=== PATIENT | female | born 1990 ===

== ENCOUNTER 2024-07-16 23:17 | Observation (INO) | payer MEDICAID ==
[~2024-07-16] VITALS: Ht 162.6 cm; Wt 89.4 kg
[2024-07-16] MEDS ORDERED: LACTATED RINGER'S 1,000 ML IV SCH (23:45)
[2024-07-16] MEDS ORDERED: LACTATED RINGER'S 1,000 ML IV ONE (23:45)
[2024-07-16] MEDS ORDERED: guaiFENesin-DM 100/10mg/5ml SYR PO ONE (23:45)
[2024-07-17] MEDS: METOCLOPRAMIDE HCL 5MG/ml INJ 2ml VIAL IV ONE (00:38)
[2024-07-17] MEDS: FAMOTIDINE (10MG/ML) 2ML VL IV ONE (00:44)
--- NOTE | 2024-07-17 00:53 | DVH ---
OB ULTRASOUND, LIMITED CLINICAL INDICATION: labor TECHNIQUE: Multiple grayscale ultrasound and M-mode images were obtained of the pelvis for evaluation of intrauterine . COMPARISON: None FINDINGS: A single living fetus is seen in cephalic presentation. Biparietal diameter: 7.16 cm (28 weeks, 5 days) Head Circumference: 27.26 cm (29 weeks, 5 days) Abdomen Circumference: 25.65 cm (29 weeks, 6 days) Femur Length: 5.43 cm (28 weeks, 5 days) Estimated weight: 1383 grams (+/- 107 grams). Placenta: Posterior. Amniotic fluid: Visibly normal. HANS 13.6 cm. Cervix is 4.1 cm and closed. heart rate: 164 beats/min. A complete anatomic survey was not performed on this exam. IMPRESSION: Single living intrauterine with an estimated gestational age of 29 weeks, 2 days, corresp onding to an estimated date of delivery of 09/30/2024.
[2024-07-17] MEDS: BETAMETHASONE ACET (30mg/5ml) 5ml Vial 6mg/ml IM ONE (00:58)
--- NOTE | 2024-07-17 10:15 | DVHDS2 ---
Physician Discharge Progress N Final Diagnosis: N/V, cough, and pelvic pressure Operations or Procedures: Operations or Procedures S: 33yo IUP@29.5wks presents to OB triage with c/o vaginal pressure. Also has N/V and cough for two days. Taking zofran, which made her constipated. Denies UCs/LOF/VB/CONNOLLY/vision changes/RUQ pain. Endorses +FM. Denies UTI s/sx and vaginitis s/sx. No sex in the last [address] Conrad at [facility], last visit was 1 week ago OB Hx: x4 (3 PTD from 33-36wks gestation and 1 FTD), SAB x1 PMH: cHTN (taking labetalol 100mg PO BID) O: VSS NST reactive [place]: no UCs noted SVE: /-3 1L LR IV bolus, reglan IVP, pepcid IVP, Robitussin PO, first dose of betamethasone given A: 33yo IUP@29.5wks N/V Cough pelvic pressure P: D/C home FKC/PTL/PreE precautions reviewed Recommended using support belt and moving in/out of bed or the car with both knees together. return to birthplace in 12 hours for second dose of betamethasone then f/u with primary OB as scheduled Dr. Menendez consulted agrees with POC. Other Interventions Other Interventions [place] [address] Ph: [phone] DIAGNOSTIC IMAGING Diagnostic Imaging Report : [id number] Signed PATIENT: ROCHELLE RODRIGUEZ ACCT: [id number] UNIT: [id number] : 1990 LOC: [facility] ROOM / BED: TRIAGE1 / A AGE / SEX: 33 / F ADM STATUS: ADM IN SERVICE 0001 ORDERING PHYSICIAN: DIAN KU CNM PROCEDURE(s): OBUS - OB ULTRASOUND COMP GTR 14 WKS REASON: labor ORDER NUMBER(s): [id number], ACCESSION NUMBER(s): [id number] OB ULTRASOUND, LIMITED CLINICAL INDICATION: labor TECHNIQUE: Multiple grayscale ultrasound and M-mode images were obtained of the pelvis for evaluation of intrauterine . COMPARISON: None FINDINGS: A single living fetus is seen in cephalic presentation. Biparietal diameter: 7.16 cm (28 weeks, 5 days) Head Circumference: 27.26 cm (29 weeks, 5 days) Abdomen Circumference: 25.65 cm (29 weeks, 6 days) Femur Length: 5.43 cm (28 weeks, 5 days) Estimated weight: 1383 grams (+/- 107 grams). Placenta: Posterior. Amniotic fluid: Visibly normal. HANS 13.6 cm. Cervix is 4.1 cm and closed. heart rate: 164 beats/min. A complete anatomic survey was not performed on this exam. IMPRESSION: Single living intrauterine with an estimated gestational age of 29 weeks, 2 days, corresponding to an estimated date of delivery of 09/30/2024. ATED BY: JESÚS BURGOS MD DICTATED DATE/TIME: 07/17/2449 SIGNED BY: JESÚS BURGOS MD SIGNED DATE/TIME: 07/17/2449 CC: Condition on Discharge: Stable Disposition: Home Discharge Instructions: Diet: Regular Activity: No Restrictions, As Tolerated Medications: see med list Follow Up Care: Specialist: return to birthplace in 12 hours for second dose of betamethasone then f/u with primary OB as scheduled Discharge Statement: "Patient was advised to return to the ER or call 911 if any headaches, dizziness, shortness of breath, chest pain, abdominal pain, bleeding, fevers, or worsening of medical condition. Patient was counseled about treatment plan, medications, possible side effects, patientverbalized understanding. All questions were answered to the best of my ability. This discharge took greater then 30 minutes in planning, reviewing documentation, counseling the patient, and discussing with other team members." Visit Coding OBGYN Date of Service: Jul 17, 2024 Billing Provider: DIAN KU CNM APPLICATION MANAGER Common Visit Codes: 43464-IQWPRMY OBS CARE (HIGH) APPLICATION MANAGER Procedure Codes: 25723-83- NON-STRESS TEST DIAN KU CNM Jul 17, 2024 10:15
[2024-07-17] MEDS ORDERED: LABE100T7 PO (13:32)
== END 2024-07-17 01:50 | disposition home or self-care (01) ==
LOC: LDRP 23:17
PROVIDERS: ADMIT Obstetrics & Gynecology; ATTEND Obstetrics & Gynecology
DX: O62.9 Abnormality of forces of labor, unspecified (principal); O21.9 Vomiting of pregnancy, unspecified; O26.893 Other specified pregnancy related conditions, third trimester; N89.8 Other specified noninflammatory disorders of vagina; R10.84 Generalized abdominal pain; K59.00 Constipation, unspecified; R05.9 Cough, unspecified; Z3A.29 29 weeks gestation of pregnancy; Z79.899 Other long term (current) drug therapy
CPT/HCPCS: 59025; 76805; 76817; 81002; 94760; 96361; 96372; 96374; 96375; G0378; 96360

== ENCOUNTER 2024-07-17 13:00 | Observation (INO) | payer MEDICAID ==
[~2024-07-17] VITALS: Ht 162.6 cm; Wt 84.8 kg
[2024-07-17] MEDS ORDERED: LABE100T7 PO (13:32)
[2024-07-17] MEDS: BETAMETHASONE ACET (30mg/5ml) 5ml Vial 6mg/ml IM ONE (13:53)
--- NOTE | 2024-07-18 13:00 | DVHDS2 ---
Physician Discharge Progress N Final Diagnosis: iup at 29wks ptl Operations or Procedures: Operations or Procedures nst,sono Condition on Discharge: Good Disposition: Home Discharge Instructions: Diet: Regular Activity: Light activity Medications: na Follow Up Care: Specialist: 1w Discharge Statement: "Patient was advised to return to the ER or call 911 if any headaches, di zziness, shortness of breath, chest pain, abdominal pain, bleeding, fevers, or worsening of medical condition. Patient was counseled about treatment plan, medications, possible side effects, patientverbalized understanding. All questions were answered to the best of my ability. This discharge took greater then 30 minutes in planning, reviewing documentation, counseling the patient, and discussing with other team members." Visit Coding OBGYN Date of Service: Jul 17, 2024 Billing Provider: ANDREWS KEE DO CAN STERILIZER Common Visit Codes: 34592-CCBNTVW INP/OBS CARE (HIGH) ANDREWS KEE DO Jul 18, 2024 13:00
== END 2024-07-17 14:24 | disposition home or self-care (01) ==
LOC: LDRP 13:00
PROVIDERS: ADMIT Obstetrics & Gynecology; ATTEND Obstetrics & Gynecology
DX: O60.03 Preterm labor without delivery, third trimester (principal); O16.3 Unspecified maternal hypertension, third trimester; Z3A.29 29 weeks gestation of pregnancy; Z79.899 Other long term (current) drug therapy; Z98.890 Other specified postprocedural states
CPT/HCPCS: 59025; 81002; 94760; G0378

== ENCOUNTER 2024-08-02 20:35 | Observation (INO) | payer MEDICAID ==
[~2024-08-02 20:35] MED LIST: LABE100T7 PO
--- NOTE | 2024-08-03 09:03 | DVHDS2 ---
Physician Discharge Progress N Final Diagnosis: ptl,cramping Operations or Procedures: Operations or Procedures nst,sono Condition on Discharge: Good Disposition: Home Discharge Instructions: Diet: Regular Activity: Light activity Medications: na Follow Up Care: Specialist: 1d with ob Discharge Statement: "Patient was advised to return to the ER or call 911 if any headaches, dizziness, shortness of breath, chest pain, abdominal pain, bleeding, fevers, or worsening of medical condition. Patient was counseled about treatment plan, medications, possible side effects, patientverbalized understanding. All questions were answered to the best of my ability. This discharge took greater then 30 minutes in planning, reviewing documentation, counseling the patient, and discussing with other team members." Visit Coding OBGYN Date of Service: Aug 02, 2024 Billing Provider: ANDREWS KEE DO FOREIGN EXCHANGE SERVICES MANAGER Common Visit Codes: 74787-EZQ/OBS SAME DATE (HIGH) FOREIGN EXCHANGE SERVICES MANAGER Procedure Codes: 42725-58- NON-STRESS TEST ANDREWS KEE DO Aug 03, 2024 09:03
== END 2024-08-02 21:34 | disposition home or self-care (01) ==
LOC: LDRP 20:35
PROVIDERS: ADMIT Obstetrics & Gynecology; ATTEND Obstetrics & Gynecology
DX: O60.03 Preterm labor without delivery, third trimester (principal); Z3A.32 32 weeks gestation of pregnancy; Z79.899 Other long term (current) drug therapy; Z98.890 Other specified postprocedural states
CPT/HCPCS: 81002; 94760; G0378